=== PATIENT | female | born 1965 | race Caucasian/White ===

== ENCOUNTER 2016-06-28 19:44 | Emergency (ER) | payer OTHER ==
[~2016-06-28] VITALS: Ht 177.8 cm; Wt 105.2 kg
[2016-06-28 19:44] VITALS: BP 144/76
[2016-06-28] MEDS: PHENAZOPYRIDINE 200 MG TABLET. PO ONE (20:29)
[2016-06-28] MEDS ORDERED: SULF1TAB24 PO (20:33)
[2016-06-28] MEDS ORDERED: PHEN-318 PO (20:35)
[2016-06-28 20:48] LABS: BACTERIA,URINE 0 /HPF (0-FEW); BILIRUBIN,URINE NEG (NEG); CLARITY,URINE TURBID; COLOR,URINE YELLOW; GLUCOSE,URINE NEG (NEG); NITRITE,URINE NEG (NEG); RBC,URINE >40 /HPF (0-2); UROBILINOGEN,URINE 0.2 mg/dL (0.2 mg/dL); WBC,URINE >40 /HPF (0-4)
--- NOTE | 2016-06-28 20:50 | ED.ADGEN ---
Past History Past Medical History: Hypothyroid Past Surgical History: Other Alcohol Use: None Drug Use: None Adult General HPI HPI Patient is a 50-year-old female presents emergency Department with a one-day history of increased urinary frequency, dysuria, hematuria. She has had urinary tract infections as exact same symptoms. She denies any fevers, chills, nausea, vomiting. Review of Systems Review of Systems Constitutional: Denies fever or chills [] Eyes: Denies change in visual acuity, redness, or eye pain [] HENT: Denies nasal congestion or sore throat [] Respiratory: Denies cough or shortness of breath [] Cardiovascular: No additional information not addressed in HPI [] GI: Denies abdominal pain, nausea, vomiting, bloody stools or diarrhea [] : Denies dysuria or hematuria [] Musculoskeletal: Denies back pain or joint pain [] Integument: Denies rash or skin lesions [] Neurologic: Denies headache, focal weakness or sensory changes [] Endocrine: Denies polyuria or polydipsia [] Current Medications Current Medications Current Medications Medications (Trade) Dose Ordered Sig/Doug Start Time Stop Time Status Last Admin Dose Admin Phenazopyridine HCl (Pyridium) 200 mg 1X ONCE 06/28/16 20:30 06/28/16 20:33 DC 06/28/16 20:29 200 MG Allergies Allergies Allergies Coded Allergies Type Severity Reaction Last Updated Verified azithromycin Allergy Unknown 06/28/16 Yes Physical Exam Physical Exam Constitutional: Well developed, well nourished, no acute distress, non-toxic appearance. [] HENT: Normocephalic, atraumatic, bilateral external ears normal, oropharynx moist, no oral exudates, nose normal. [] Eyes: PERRLA, EOMI, conjunctiva normal, no discharge. [] Neck: Normal range of motion, no tenderness, supple, no stridor. [] Cardiovascular:Heart rate regular rhythm, no murmur [] Lungs & Thorax: Bilateral breath sounds clear to auscultation [] Abdomen: Bowel sounds normal, soft, suprapubic tenderness, no masses, no pulsatile masses. [] Skin: Warm, dry, no erythema, no rash. [] Back: No tenderness, no CVA tenderness. [] Extremities: No tenderness, no cyanosis, no clubbing, ROM intact, no edema. [] Neurologic: Alert and oriented X 3, normal motor function, normal sensory function, no focal deficits noted. [] Psychologic: Affect normal, judgement normal, mood normal. [] Current Patient Data Vital Signs Vital Signs Date Time Temp Pulse Resp B/P Pulse Ox O2 Delivery O2 Flow Rate FiO2 06/28/16 20:25 71 18 117/71 97 Room Air 06/28/16 19:44 97.9 Lab Results Laboratory Tests Test 06/28/16 19:53 Urine Collection Type Unknown Urine Color Yellow Urine Clarity Turbid Urine pH 5.5 Urine Specific [place] 1.010 Urine Protein 100 mg/dl (NEG-TRACE) Urine Glucose (UA) Negmg/dL (NEG) Urine Ketones (Stick) Negmg/dL (NEG) Urine Blood Large (NEG) Urine Nitrite Neg (NEG) Urine Bilirubin Neg (NEG) Urine Urobilinogen Dipstick 0.2mg/dL (0.2 mg/dL) Urine Leukocyte Esterase Large (NEG) Urine RBC >40/HPF (0-2) Urine WBC >40/HPF (0-4) Urine Squamous Epithelial Cells None/LPF Urine Bacteria 0/HPF (0-FEW) EKG EKG [] Radiology/Procedures Radiology/Procedures [] Course & Med Decision Making Course & Med Decision Making Pertinent Labs and Imaging studies reviewed. (See chart for details) Cultures have been sent. Prescription for Bactrim and Pyridium given. She will follow-up with her doctor as needed return emergency department sooner she develops new or worsening symptoms. [] Final Impression Final Impression Urinary tract infection [] Problems: Dragon Disclaimer Dragon Disclaimer This electronic medical record was generated, in whole or in part, using a voice recognition dictation system. TIM DE LEON MD Jun 28, 2016 20:50
== END 2016-06-28 20:43 | disposition home or self-care (01) ==
LOC: ER 19:44
DX: N39.0 Urinary tract infection, site not specified (principal); E03.9 Hypothyroidism, unspecified; Z88.1 Allergy status to other antibiotic agents
CPT/HCPCS: 81001; 87086; 99284

== ENCOUNTER → 2016-08-15 | Outpatient (CLI) | payer OTHER ==
[2016-06-28 20:25] VITALS: BP 117/71
[~2016-08-15] MED LIST: PHEN-318 PO; SULF1TAB24 PO
--- NOTE | 2016-08-15 13:18 | RAD ---
Indication: Status post rotator cuff repair 9 weeks ago, now complaining of left arm swelling for one week. Grayscale, color-flow and duplex Doppler evaluation of the left upper extremity deep venous system was performed. Left internal jugular, subclavian, and axillary veins are patent. The brachial vein and basilic vein are patent. The cephalic vein was not visualized. No thrombus is seen. No fluid collection is identified. Impression: No evidence of left upper extremity DVT.
== END | disposition home or self-care (01) ==
LOC: US 10:39
PROVIDERS: ATTEND Orthopaedic Surgery
DX: M79.89 Other specified soft tissue disorders (principal); Z98.890 Other specified postprocedural states
CPT/HCPCS: 93971

== ENCOUNTER 2016-11-25 13:27 | Emergency (ER) | payer OTHER ==
[~2016-11-25] VITALS: Ht 177.8 cm; Wt 105.2 kg
[2016-11-25 14:02] VITALS: BP 112/87
[2016-11-25] MEDS ORDERED: PHEN100T82 PO (14:22)
[2016-11-25] MEDS ORDERED: SULF1TAB24 PO (14:22)
--- NOTE | 2016-11-25 14:22 | PHYS DOC ---
Past History Past Medical History: Anemia, Hypothyroid, Other Past Surgical History: Appendectomy, Other Alcohol Use: None Drug Use: None Adult General Chief Complaint Chief Complaint: PAIN ON URINATION HPI HPI Patient is a 50-year-old female who presents with dysuria for 2 days. She took a dose of Pyridium which improved it briefly. She has had a UTI before and it felt like this. She denies fever, chills, nausea, vomiting, back pain. She has not had frequent UTIs, had one in June of this year. She is a schoolteacher. Review of Systems Review of Systems Constitutional: Denies fever or chills [] GI: Denies abdominal pain, nausea, vomiting, bloody stools or diarrhea [] : As in history of present illness Musculoskeletal: Denies back pain Allergies Allergies Allergies Coded Allergies Type Severity Reaction Last Updated Verified azithromycin Allergy Unknown 06/28/16 Yes Physical Exam Physical Exam Constitutional: Well developed, well nourished, no acute distress, non-toxic appearance. [] HENT: Normocephalic, atraumatic, bilateral external ears normal, nose normal. [ ] Eyes: conjunctiva normal, no discharge. [] Neck: Normal range of motion, no stridor. [] Skin: Warm, dry, no erythema, no rash. [] Extremities: no cyanosis, no clubbing, ROM intact, no edema. [] Neurologic: Alert and oriented X 3, normal motor function, no focal deficits noted. [] Current Patient Data Vital Signs Vital Signs Date Time Temp Pulse Resp B/P (MAP) Pulse Ox O2 Delivery O2 Flow Rate FiO2 11/25/16 14:02 98.0 80 20 98 Room Air EKG EKG [] Radiology/Procedures Radiology/Procedures [] Course & Med Decision Making Course & Med Decision Making Pertinent Labs and Imaging studies reviewed. (See chart for details) Urinalysis consistent with UTI. Culture was ordered. We will start her on antibiotics. [] Dragon Disclaimer Dragon Disclaimer This chart was dictated in whole or in part using Voice Recognition software in a busy, high-work load, and often noisy Emergency Department environment. It may contain unintended and wholly unrecognized errors or omissions. Departure Departure: Impression: Primary Impression: Urinary tract infection Disposition: HOME, SELF-CARE Condition: STABLE Referrals: KYLE GROVER (PCP) Patient Instructions: Urinary Tract Infection, [id number] Scripts Sulfamethoxazole/Trimethoprim (BACTRIM DS TABLET) 1 Each Tablet 1 TAB PO BID for uti, #14 TAB Prov: CHIDI SANCHEZ MD 11/25/16 Phenazopyridine Hcl (PYRIDIUM) 100 Mg Tablet 100 MG PO TID PRN Y for urinary discomfort, #10 TAB Prov: CHIDI SANCHEZ MD 11/25/16 CHIDI SANCHEZ MD Nov 25, 2016 14:22
[2016-11-25] MEDS ORDERED: SMZ/TMP 800/160MG TABLET. PO ONE (14:30)
[2016-11-25] MEDS ORDERED: PHENAZOPYRIDINE 100 MG TABLET. PO ONE (14:30)
[2016-11-25 14:45] LABS: COLOR,URINE YELLOW
[2016-11-25 14:46] LABS: AMORPHOUS SEDIMENT,UR PRESENT /HPF; BACTERIA,URINE 0 /HPF (0-FEW); BILIRUBIN,URINE NEG (NEG); CLARITY,URINE CLOUDY; GLUCOSE,URINE NEG (NEG); NITRITE,URINE NEG (NEG); RBC,URINE OCC /HPF (0-2); SQUAMOUS EPITHELIAL CELL,UR OCC /LPF; UROBILINOGEN,URINE 0.2 mg/dL (0.2 mg/dL)
== END 2016-11-25 14:35 | disposition home or self-care (01) ==
LOC: ER 13:27
DX: N39.0 Urinary tract infection, site not specified (principal); E03.9 Hypothyroidism, unspecified; Z86.2 Personal history of diseases of the blood and blood-forming organs and certain disorders involving the immune mechanism; Z88.1 Allergy status to other antibiotic agents
CPT/HCPCS: 81001; 87086; 87186; 99284